=== PATIENT | male | born 2000 | race Caucasian/White ===

== ENCOUNTER 2021-06-02 23:19 | Emergency (ER) | payer BC ==
[2021-06-03] MEDS ORDERED: ERYTHROMYCIN OP1 GM OS (02:01)
== END 2021-06-03 02:10 | disposition home or self-care (01) ==
LOC: ER1 23:19
DX: H10.12 Acute atopic conjunctivitis, left eye (principal); H11.422 Conjunctival edema, left eye
CPT/HCPCS: 99282; J1100